=== PATIENT | female | born 1970 | race Two or more races ===

== ENCOUNTER 2016-04-17 08:26 | Inpatient (IN) | payer OTHER ==
[2016-04-17] VITALS (13 sets, daily range): BP systolic 129–167; BP diastolic 76–99
[~2016-04-17] VITALS: Ht 170.2 cm; Wt 104.3 kg
[~2016-04-17 08:26] MED LIST: ceFAZolin sod 2 GM in D5W 110 ML IVP ONE
--- NOTE | 2016-04-17 09:25 | Pre-Procedure Note/Attestation ---
Pre-Procedure Note/Attestation Complete Prior to Procedure Planned Procedure: not applicable Procedure Narrative: Anterior Cervical Discectomy and Fusion at C45 and C56 and Artificial Disc Replacement at C67 Indications for Procedure Pre-Operative Diagnosis: Herniation C45,56,67 Attestation I attest that I discussed the nature of the procedure; its benefits; risks and complications; and alternatives (and the risks and benefits of such alternatives ), prior to the procedure, with the patient (or the patient's legal paper sales representative). I attest that, if there was a reasonable possibility of needing a blood transfusion, the patient (or the patient's legal paper sales representative) was given the [place] Department [employer] standardized written summary, pursuant to the Sylvester Derrick Blood Safety Act ([place] Health and Safety Code # 1645, as amended). I attest that I re-evaluated the patient just prior to the surgery and that there has been no change in the patient's H&P, except as documented below: GILMAR HAYS Apr 17, 2016 09:25
[2016-04-17] MEDS ORDERED: IBUPROFEN600 MG ORAL (09:26)
--- NOTE | 2016-04-17 09:26 | Brief Operative Note ---
Immediate Post Operative Note Operative Note Chief Complaint: Intractable neck pain and arm pain Pre-op Diagnosis: Herniation C45,56,67 Procedure: Anterior Cervical Discectomy and Fusion at C45 and C56 and Artificial Disc Replacement at C67 Post-op Diagnosis: same as pre-op Findings: consistent w/pre-op dx studies Surgeon: Mary Physically Impaired Teacher: Sami Anesthesiologist: Agustina Anesthesia: general Specimen: none Complications: none Condition: stable Estimated Blood Loss: minimal Implant(s) used?: Yes - Nuvasive sz 6 interlock , Prodisc sz 5 GILMAR HAYS Apr 17, 2016 09:26
[2016-04-17] MEDS ORDERED: Norco 7.5mg/325mg tab ORAL PRN ×3 (09:30→11:00)
[2016-04-17] MEDS ORDERED: Milk of Magnesia 30ml Ud ORAL PRN (09:30)
[2016-04-17] MEDS ORDERED: Naloxone 0.4mg/ml Inj IVP PRN (09:30)
[2016-04-17] MEDS ORDERED: Metoclopramide 10mg/2ml Inj IVP PRN ×2 (09:30→11:00)
[2016-04-17] MEDS ORDERED: HYDROmorphone 1mg/ml Carpuject IVP PRN (09:30)
[2016-04-17] MEDS ORDERED: HYDROmorphone 1mg/ml Carpuject SUBQ PRN (09:30)
[2016-04-17] MEDS ORDERED: Norco 5mg/325mg tab ORAL PRN ×2 (09:30→11:00)
[2016-04-17] MEDS ORDERED: Vancomycin 1gm inj IVPB ONE (10:36)
[2016-04-17] MEDS ORDERED: Thrombin 5000 units TOPIC ONE (10:36)
[2016-04-17] MEDS ORDERED: Bacitracin 50000 Units Vial ONE (10:36)
[2016-04-17] MEDS ORDERED: Lidocaine 0.5% Epi 50 mL Vial ONE (10:37)
[2016-04-17] MEDS ORDERED: LR 1000ml 1,000 ML IVLG SCH (10:52)
--- NOTE | 2016-04-17 10:52 | Anethesia Preoperative Eval ---
Anesthesia Pre-op PMH/ROS General Date of Evaluation: Apr 17, 2016 Time of Evaluation: 11:24 Anesthesiologist: Bulmaro ASA Score: ASA 3 Mallampati Score Class I : Soft palate, uvula, fauces, pillars visible Class II: Soft palate, uvula, fauces visible Class III: Soft palate, base of uvula visible Class IV: Only hard plate visible Mallampati Classification: Class II Surgeon: Mary Diagnosis: Neck Pain Surgical Procedure: ACDF C4-5, C5-6 Anesthesia History: none Family History: no anesthesia problems Allergies: Coded Allergies: No Known Allergies (Unverified , 04/16/16) Medications: see eMAR Past Medical History Cardiovascular: Reports: HTN Pulmonary: Reports: asthma Neurologic/Psychiatric: Reports: depression/anxiety Other: obesity - BMI 37 PSxH Narrative: Cholecystectomy, L Spine SX, R Knee Sx Anesthesia Pre-op Phys. Exam Physician Exam Last Vital Signs Date Time Temp Pulse Resp B/P Pulse Ox O2 Delivery O2 Flow Rate FiO2 04/17/16 09:30 97.9 75 20 144/93 96 Room Air Constitutional: NAD Neurologic: CN 2-12 intact Cardiovascular: RRR Respiratory: CTA Gastrointestinal: S/NT/ND Airway Exam Mallampati Score: Class II MO: full ROM: limited Teeth: intact Anesthesia Pre-op A/P Labs Urine Test Test 04/17/16 08:05 Urine HCG, Qualitative Negative Risk Assessment & Plan Assessment: ASA 3 Plan: GA, BIS, Glidescope Status Change Before Surgery: No Pre-Antibiotics Dru Grams Ancef IV Given Within 1 Hr of Incision: Yes Time Given: 11:46 Meek Berrios MD Apr 17, 2016 10:52
[2016-04-17] MEDS ORDERED: Oxycodone/Acetaminophen 5-325 ORAL PRN (11:00)
[2016-04-17] MEDS ORDERED: Labetalol 5mg/ml 20ml vial IV PRN (11:00)
[2016-04-17] MEDS ORDERED: Ketorolac 30mg Inj IV PRN (11:00)
[2016-04-17] MEDS ORDERED: Meperidine 25mg/ml Inj IV PRN (11:00)
[2016-04-17] MEDS ORDERED: Midazolam 2mg/2ml Inj IVP PRN (11:00)
[2016-04-17] MEDS ORDERED: fentaNYL 100 mcg/2 mL IV PRN (11:00)
[2016-04-17] MEDS ORDERED: Ketorolac 60mg Inj IV PRN (11:00)
[2016-04-17] MEDS ORDERED: Hydromorphone 0.5mg/0.5ml inj IVP PRN (11:00)
[2016-04-17] MEDS ORDERED: Atropine Inj 1mg/10ml Syr IV PRN (11:00)
[2016-04-17] MEDS ORDERED: LORazepam Inj 2mg/ml 1ml IV PRN (11:00)
[2016-04-17] MEDS ORDERED: DiphenhydrAMINE 50mg/ml Inj IVP PRN (11:00)
[2016-04-17] MEDS ORDERED: Propofol 10mg/ml 100ml btl IV ONE (11:30)
[2016-04-17] MEDS ORDERED: Neostigmine 1mg/ml 10ml Inj ONE (11:30)
[2016-04-17] MEDS ORDERED: fentaNYL 250mcg/5ml ONE (11:30)
[2016-04-17] MEDS ORDERED: fentaNYL 100 mcg/2 mL IV ONE (11:30)
[2016-04-17] MEDS ORDERED: Dexamethasone 4mg/ml vial ONE (11:30)
[2016-04-17] MEDS ORDERED: Lidocaine 1% MPF 10mg/ml 5ml ONE (11:30)
[2016-04-17] MEDS ORDERED: LR 1000ml ONE (11:30)
[2016-04-17] MEDS ORDERED: Zemuron 50mg/5ml Inj IV ONE (11:30)
[2016-04-17] MEDS ORDERED: Glycopyrrolate 0.2mg/ml 1ml Vial ONE (11:30)
[2016-04-17] MEDS ORDERED: Sterile Water Irrig 1000ml IRRIG ONE (11:30)
[2016-04-17] MEDS ORDERED: NS Irrig 1000ml IRRIG ONE (11:30)
[2016-04-17] MEDS ORDERED: NS Irrig 1000ml ONE (11:30)
[2016-04-17] MEDS ORDERED: Acetaminophen (Non formulary) 1,000 MG/100 ML ML IV ONE (12:00)
--- NOTE | 2016-04-17 12:38 | Immediate Post-Op Evaluation ---
Immediate Post-Op Evalulation Immediate Post-Op Evalulation Procedure: ACDF C4-5, C5-6 Date of Evaluation: Apr 17, 2016 Time of Evaluation: 15:48 IV Fluids: 1300 LR Blood Products: 0 Estimated Blood Loss: 75 Urinary Output: 300 Blood Pressure Systolic: 167 Blood Pressure Diastolic: 90 Pulse Rate: 102 Respiratory Rate: 16 O2 Sat by Pulse Oximetry: 99 Temperature (Fahrenheit): 98.6 Pain Score (1-10): 3 Nausea: No Vomiting: No Complications 0 Patient Status: awake, reacts, patent, extubated, none Hydration Status: adequate Dru Grams Ancef IV Given Within 1 Hr of Incision: Yes Time Given: 11:46 Meek Berrios MD Apr 17, 2016 12:38
--- NOTE | 2016-04-17 18:46 | History and Physical ---
History of Present Illness General Date patient seen: Apr 17, 2016 Time patient seen: 18:41 Reason for Hospitalization: neck pain Present Illness HPI pt is a 45 yo F who had been experiencing Intractable neck pain and arm pain despite conservative management with medications and therapy. Pre-op Diagnosis: Herniation C45,56,67 Procedure: Anterior Cervical Discectomy and Fusion at C45 and C56 and Artificial Disc Replacement at C67 Allergies: Coded Allergies: No Known Allergies (Unverified , 04/16/16) Medication History Scheduled Ibuprofen* (Motrin*), 600 MG ORAL NEEDED, (Reported) Patient History Healthcare decision maker PATIENT Resuscitation status Full Code Advanced Directive on File Past Medical/Surgical History Past Medical/Surgical History: (1) HNP (herniated nucleus pulposus), cervical Family History Family History: Patient reports no known family medical history. Social History Social History: (1) No significant social history Review of Systems All Other Systems: negative except mentioned in HPI Physical Exam General Appearance: no apparent distress, alert HEENT: normocephalic, atraumatic, anicteric, mucous membranes moist, PERRL, EOMI, pharynx normal, no JVD Neck: non-tender, supple Respiratory/Chest: lungs clear, normal breath sounds, no respiratory distress, no accessory muscle use Cardiovascular/Chest: normal peripheral pulses, normal rate, regular rhythm Abdomen: normal bowel sounds, non tender, soft, no mass Extremities: non-tender, normal inspection Skin Exam: warm/dry, other - incision d/c/i 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, no motor/sensory deficits, alert Musculoskeletal: normal muscle bulk Last 24 Hour Vital Signs Date Time Temp Pulse Resp B/P Pulse Ox O2 Delivery O2 Flow Rate FiO2 04/17/16 17:15 98.7 98 14 143/81 96 Nasal Cannula 3.0 04/17/16 17:01 98.7 04/17/16 17:00 96 15 151/85 96 Nasal Cannula 3.0 04/17/16 16:45 93 12 158/82 97 Nasal Cannula 3.0 04/17/16 16:30 88 15 146/85 97 Nasal Cannula 3.0 04/17/16 16:30 98.6 04/17/16 16:22 98.6 04/17/16 16:20 97 13 153/92 97 Nasal Cannula 3.0 04/17/16 16:05 100 11 146/76 97 Simple Mask 6.0 04/17/16 15:52 102 19 159/84 95 Simple Mask 6.0 04/17/16 15:47 99 19 151/85 97 Simple Mask 6.0 04/17/16 15:43 102 16 99 04/17/16 15:42 100 19 164/99 97 Simple Mask 6.0 04/17/16 15:37 98.6 97 18 167/90 96 Simple Mask 6.0 04/17/16 09:30 97.9 75 20 144/93 96 Room Air Laboratory Tests Test 04/17/16 08:05 Urine HCG, Qualitative Negative Height (Feet): 5 Height (Inches): 7.00 Weight (Pounds): 230 Medications Current Medications Medications (Trade) Dose Ordered Sig/Eliud Route PRN Reason Start Time Stop Time Status Last Admin Dose Admin Acetaminophen (Tylenol) 650 mg Q4H PRN ORAL headache or temp>101 04/17/16 09:30 05/17/16 09:29 UNV Acetaminophen/ Hydrocodone Bitart ([place] 5/325) 1 tab Q3H PRN ORAL pain score 1-3 04/17/16 09:30 04/24/16 09:29 Acetaminophen/ Hydrocodone Bitart ([place] 7.5/325) 1 ea Q3H PRN ORAL pain score 4-6 04/17/16 09:30 04/24/16 09:29 Acetaminophen/ Hydrocodone Bitart ([place] 7.5/325) 2 ea Q3H PRN ORAL pain scale 7-10 04/17/16 09:30 04/24/16 09:29 Carisoprodol (Soma) 350 mg TIDPRN PRN ORAL SPASM 04/17/16 09:30 05/17/16 09:29 UNV Cefazolin Sodium/ Dextrose (Ancef/D5W) 55 ml @ 110 mls/hr EVERY 8 HOURS IV 04/17/16 14:00 04/18/16 06:29 UNV Dexamethasone Sodium Phosphate (Decadron 4mg/ml vial) 4 mg Q6HR IVP 04/17/16 12:00 04/18/16 06:01 UNV Docusate Sodium (Colace) 100 mg TWICE A DAY ORAL 04/17/16 18:00 05/17/16 17:59 UNV Hydromorphone HCl (Dilaudid) 1 mg Q4H PRN SUBQ Mild Pain (Pain Scale 1-3) 04/17/16 09:30 04/24/16 09:29 Hydromorphone HCl (Dilaudid) 2 mg Q3H PRN SUBQ Severe Pain (Pain Scale 7-10) 04/17/16 09:30 04/24/16 09:29 Hydromorphone HCl (Dilaudid) 2 mg Q4H PRN SUBQ Moderate Pain (Pain Scale 4-6) 04/17/16 09:30 04/24/16 09:29 Hydromorphone HCl 1 mg 1 mg Q2H PRN IVP Breakthrough Pain 04/17/16 09:30 04/24/16 09:29 Ketorolac Tromethamine (Toradol 30mg) 15 mg Q1H PRN IV Moderate Breakthru Pain (5-7) 04/17/16 11:00 04/17/16 21:00 Magnesium Hydroxide (Mom) 30 ml QIDPRN PRN ORAL Constipation 04/17/16 09:30 05/17/16 09:29 UNV Metoclopramide HCl (Reglan) 10 mg Q6H PRN IVP Nausea & Vomiting 04/17/16 09:30 05/17/16 09:29 UNV Naloxone HCl (Narcan) 0.1 mg PRN PRN IVP RR<12/min, pt unarousable 04/17/16 09:30 05/17/16 09:29 UNV Ondansetron HCl (Zofran) 4 mg Q6H PRN IVP Nausea & Vomiting 04/17/16 09:30 05/17/16 09:29 UNV Prochlorperazine (Compazine) 10 mg Q6H PRN IVP Nausea & Vomiting 04/17/16 09:30 05/17/16 09:29 UNV Sodium Chloride (NS w/KCl 20mEq) 1,000 ml @ 100 mls/hr Q10H IV 04/17/16 09:26 05/17/16 09:25 UNV Temazepam (Restoril) 15 mg HSPRN PRN ORAL Insomnia 04/17/16 09:30 04/24/16 09:29 UNV Assessment/Plan Problem List: (1) HNP (herniated nucleus pulposus), cervical ICD Codes: M50.20 - Other cervical disc displacement, unspecified cervical region SNOMED: [id number] Status: progressing Assessment/Plan Pt with Herniation C45,56,67 s/p Anterior Cervical Discectomy and Fusion at C45 and C56 and Artificial Disc Replacement at C67 POD 0 admit to med surg pain management IC pt/ot bowel regimen Zaire Brannon M.D. Apr 17, 2016 18:46
[2016-04-17] MEDS: Dexamethasone 4mg/ml vial IVP SCH (21:12)
[2016-04-17] MEDS: Docusate 100mg cap ORAL SCH (21:12)
[2016-04-17] MEDS: NS w/KCl 20mEq 1,000 ML IV SCH (21:12)
[2016-04-17] MEDS: ceFAZolin sod 1 GM in D5W 55 ML IV SCH (22:27)
[2016-04-18 00:27] VITALS: BP 116/97
[2016-04-18] MEDS: Dexamethasone 4mg/ml vial IVP SCH ×3 (01:49→11:26)
[2016-04-18 04:00] VITALS: BP 145/91
[2016-04-18] MEDS: ceFAZolin sod 1 GM in D5W 55 ML IV SCH ×2 (05:44→14:00)
[2016-04-18] MEDS: NS w/KCl 20mEq 1,000 ML IV SCH (05:50)
[2016-04-18 08:00] VITALS: BP 145/90
[2016-04-18] MEDS: Docusate 100mg cap ORAL SCH ×2 (08:42→17:33)
--- NOTE | 2016-04-18 08:58 | 48 Hour Post Anesthesia Eval ---
Post Anesthesia Evaluation Procedure: ACDF C4-5, C5-6 Date of Evaluation: Apr 18, 2016 Time of Evaluation: 07:00 Blood Pressure Systolic: 145 0: 91 Pulse Rate: 79 Respiratory Rate: 21 Temperature (Fahrenheit): 97.7 O2 Sat by Pulse Oximetry: 97 Airway: patent Nausea: No Vomiting: No Pain Intensity: 2 Hydration Status: adequate Cardiopulmonary Status: at baseline Mental Status/LOC: patient returned to baseline Post-Anesthesia Complications: 0 Follow-up care needed: N/A - further care as per primary team KENDRA RICHTER M.D. Apr 18, 2016 08:58
--- NOTE | 2016-04-18 10:12 | Diagnostic Imaging Report ---
Indication: Cervical pain Technique: Intraoperative imaging of the cervical spine with 7 fluoroscopically captured images. Comparison: None Findings: Limited intraoperative imaging demonstrates intervertebral arthroplasty at the C6/C7 level. Anterior screws are also noted at C4/C5 and C5/C6. Impression: Limited intraoperative imaging.
[2016-04-18 12:00] VITALS: BP 138/91
[2016-04-18] MEDS ORDERED: NORCO 10-325 T1 EACH ORAL (12:02)
[2016-04-18 15:59] VITALS: BP 162/102
--- NOTE | 2016-04-18 20:36 | Discharge Summary ---
Discharge Summary Hospital Course Date of Admission Apr 17, 2016 at 08:26 Date of Discharge Apr 18, 2016 at 19:00 Admitting Diagnosis HNP, Cervical HPI Jayde Hannon is a 45 year old female who was admitted on Apr 17, 2016 at 08: 26 for Cervical Radiculopathy,Stenosis Procedures s/p Anterior Cervical Discectomy and Fusion at C45 and C56 and Artificial Disc Replacement at C67 04/17/[address] Hernandez Hospital Course Pt with Herniation C45,56,67 s/p Anterior Cervical Discectomy and Fusion at C45 and C56 and Artificial Disc Replacement at C67, tolerated well w/o complication. Discharge Condition Upon Discharge: stable Discharge Disposition Patient was discharged to Home (01) Discharge Diagnoses: (1) HNP (herniated nucleus pulposus), cervical Discharge Instructions Discharge Instructions Follow up with: PCP & Spine surgery Diet: regular Activity: as tolerated For Surgical Patients Clean and Dry: surgical site Dressing Care: keep dry and clean Contact your physician for: bleeding, pain, tenderness, redness, swelling, yellowish discharge in the op. site Jesus Mcnulty MD Apr 18, 2016 20:36
--- NOTE | 2016-04-20 03:37 | Discharge Summary ---
DATE OF ADMISSION: 04/17/2016 DATE OF DISCHARGE: 04/18/2016 PROCEDURE PERFORMED DURING ADMISSION: Anterior cervical diskectomy and fusion at C4-C5 and C5-C6, artificial disc replacement at C6-C7. REASON FOR ADMISSION: Herniated nucleus pulposus, C4-C5, C5-C6, C6-C7. HOSPITAL COURSE/TREATMENT RENDERED: DISCHARGE PHYSICAL EXAM: 1. The patient was ambulating with and without the assistance of physical therapy. 2. Prior to discharge home incision was clean and dry with minimal swelling. 3. Follows commands. 4. Alert and oriented. 5. Gotti discontinued, voiding. 6. Incentive spirometer at bedside. 7. IVF hep locked. MOTOR: Demonstrates expected postoperative bulk and tone. Moves biceps, triceps, and deltoid musculature on command. Moves hip flexors, quadriceps, tibialis anterior, EHL, gastrocsoleus musculature on command as well. TREATMENT RENDERED: 1. Daily nursing care. 2. Physical Therapy. 3. Occupational Therapy. 4. Intravenous medications. 5. Oral medications. 6. Daily postoperative examinations by Spine surgery team. CONDITION OF PATIENT ON DISCHARGE: The condition on discharge is stable for discharge to home. DISCHARGE INSTRUCTIONS: Our specific instructions relating to physical activity, medications diet and follow-up care are detailed in our standard operative folder and were given to this patient prior to surgery. We will however summarize these briefly as stated below. Regarding physical activity we would like the patient to limit their flexion, extension and rotation. We also require a limitation on their bending lifting and twisting. All medication has been called in prior to surgery to their pharmacy of choice. They can resume their regular diet once tolerated. We would like them to shower and limit soaking the wound in a tub/Jacuzzi/the ocean for a period of one month or until the incision is completely healed. We will have them follow up in our office in three weeks time for their regularly scheduled appointment. They understand to call our office tomorrow to schedule the time for their three week followup appointment. The patient will notify us should they experience any increase in the severity of pain, redness/swelling/ or drainage from their incision. Alfonso Hernandez M.D. DR: TASHA JOB#: [id number] CC:
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
--- NOTE | 2016-05-01 13:57 | Operative Note - Dictated ---
PREOPERATIVE NOTE: The patient is a 45-year-old female with history of severe cervical stenosis, radiculopathy, and multi-level disc herniations prior to surgery , we have tried on multiple occasions to obtain preoperative motor signal, however, we were unable to obtain those. Otherwise, we are able to obtain some somatosensory evoked potential monitoring. I have spoken with our neurophysiologist and technologist, and we are not able to obtain any motor evoked potentials currently, which can happen in approximately 30% of time . They feel that this may a result of her obesity and the difficulty in regards to the depth of the needles making readings difficult. We will proceed accordingly and monitor any improvement through the surgery in that status. Alfonso Hernandez M.D. DR: TIFFANY JOB#: [id number] CC: ROMY
== END 2016-04-18 19:00 | disposition home or self-care (01) | DRG 473 ==
LOC: SDSOVERFLO 08:26 → 3E 18:04
PROC: 0RG20A0 Fusion of 2 or more Cervical Vertebral Joints with Interbody Fusion Device, Anterior Approach, Anterior Column, Open Approach (ICD-10-PCS; principal; 2016-04-17 11:30)
PROC: 0RB30ZZ Excision of Cervical Vertebral Disc, Open Approach (ICD-10-PCS; principal; 2016-04-17 11:30)
PROC: 0RR30JZ Replacement of Cervical Vertebral Disc with Synthetic Substitute, Open Approach (ICD-10-PCS; principal; 2016-04-17 11:30)
DX: M50.121 Cervical disc disorder at C4-C5 level with radiculopathy (principal); M48.02 Spinal stenosis, cervical region
CPT/HCPCS: 36415; 72040; 76000; 81025; 86850; 86900; 86901; 87081; 94003; 94150; 94760; J2180; J2405; J2710